=== PATIENT | female | born 1980 | race Caucasian/White ===

== ENCOUNTER 2019-05-04 09:09 | Outpatient (CLI) | payer BC ==
--- NOTE | 2019-05-04 09:35 | RAD ---
EXAM: Thoracic spine 3 views: HISTORY: Thoracic spine pain COMPARISON: None FINDINGS: Levoscoliosis of the lower thoracic vertebral column. Mild disc osteophytosis and spondylosis. No evidence for acute fracture or dislocation or significant acute process. No evidence for significant malalignment. Disc spaces are adequately preserved. No evidence for a focal bone lesion. IMPRESSION: Mild spondylosis. Levoscoliosis.
== END 2019-05-04 09:10 | disposition home or self-care (01) ==
LOC: TBSIIMAG 09:09
PROVIDERS: ATTEND Neurological Surgery
DX: M54.6 Pain in thoracic spine (principal); M47.814 Spondylosis without myelopathy or radiculopathy, thoracic region; M41.9 Scoliosis, unspecified
CPT/HCPCS: 72072

== ENCOUNTER 2019-07-26 11:28 | Outpatient (CLI) | payer BC, OTHER ==
[2019-07-26 14:49] LABS: #Eosinphils 0.1 thou/uL (0.0-0.7); #Lymphocytes 1.9 thou/uL (1.20-3.40); #Monocytes 0.4 thou/uL (0.11-0.59); #Neutrophils 3.7 thou/uL (1.40-6.50); %Basophils 0.6 % (0.0-1.0); %Eosinophils 1.5 % (0.0-10.0); %Lymphocytes 31.9 % (21.0-51.0); %Monocytes 5.9 % (0.0-10.0); %Neutrophils 60.1 % (42.0-75.0); Hemoglobin 14.9 g/dL (12.0-16.0); Mean Corpuscular HGB CONC 34.2 g/dL (32.0-36.0); Mean Corpuscular Hemoglobin 32.2 pg (27.0-31.0); Mean Corpuscular Volume 94.1 fL (78.0-98.0); Mean Platelet Volume 7.4 fL (7.4-10.4); Platelet Count 170 thou/uL (130-400); Red Blood Cell (RBC) Count 4.62 mill/uL (4.20-5.40); White Blood Cell (WBC) Count 6.1 thou/uL (4.8-10.8)
[2019-07-26 15:09] LABS: ALT (SGPT) 7 U/L (8-55); AST (SGOT) 10 U/L (5-34); Albumin 4.5 g/dL (3.5-5.0); Alkaline Phosphatase 42 U/L (40-110); Anion Gap 14 mmol/L (10-20); BUN (Urea Nitrogen) 11 mg/dL (7.0-18.7); Bilirubin, Total 0.8 mg/dL (0.2-1.2); Calc. Creatinine Clearance 0 mL/min (70-130); Calcium 9.1 mg/dL (7.8-10.44); Carbon Dioxide 23 mmol/L (22-29); Chloride 104 mmol/L (98-107); Estimated GFR-MDRD 81; Globulin 2.8 g/dL (2.4-3.5); Glucose 76 mg/dL (70-105); Potassium 3.9 mmol/L (3.5-5.1); Protein, Total 7.3 g/dL (6.0-8.3); Sodium 137 mmol/L (136-145)
[2019-07-27 11:51] LABS: SARS-CoV-2 MS2 Positive; SARS-CoV-2 N Gene Negative; SARS-CoV-2 S Gene Negative; SARS-CoV-2 orf1ab Negative
== END 2019-07-26 11:29 | disposition home or self-care (01) ==
LOC: LABBT 11:28
PROVIDERS: ATTEND Specialist
DX: Z01.812 Encounter for preprocedural laboratory examination (principal); Z11.59 Encounter for screening for other viral diseases; K80.12 Calculus of gallbladder with acute and chronic cholecystitis without obstruction
CPT/HCPCS: 80053; 85025; 87635; U0003

== ENCOUNTER 2020-06-09 15:00 | Inpatient (IN) | payer BC ==
[~2020-06-09 15:00] MED LIST: Iopamidol-370 76% 500 ML 1 ML ONE
[2020-06-09 15:31] LABS: #Eosinphils 0.1 thou/uL (0.0-0.7); #Lymphocytes 1.6 thou/uL (1.20-3.40); #Neutrophils 14.3 thou/uL (1.40-6.50); %Eosinophils 0.3 % (0.0-10.0); %Lymphocytes 9.4 % (21.0-51.0); %Monocytes 5.8 % (0.0-10.0); %Neutrophils 84.5 % (42.0-75.0); Hemoglobin 13.3 g/dL (12.0-16.0); Mean Corpuscular HGB CONC 33.6 g/dL (32.0-36.0); Mean Corpuscular Hemoglobin 31.6 pg (27.0-31.0); Mean Corpuscular Volume 94.1 fL (78.0-98.0); Mean Platelet Volume 7.1 fL (7.4-10.4); Platelet Count 344 thou/uL (130-400); Red Blood Cell (RBC) Count 4.21 mill/uL (4.20-5.40); White Blood Cell (WBC) Count 16.9 thou/uL (4.8-10.8)
[2020-06-09 15:39] LABS: BHCG - Serum Negative (NEGATIVE); Pregs Control Background? CLEAR/WHITE (CLR/WHITE); Pregs Control Bar Appear? YES (CONTROL BAR)
[2020-06-09] MEDS ORDERED: Ketorolac Tromethamine 30 MG/ML VIAL ONE (15:41)
[2020-06-09] MEDS ORDERED: Fentanyl 100 MCG/2 ML VIAL ONE ×2 (15:41→17:41)
[2020-06-09] MEDS ORDERED: Ondansetron PF 4 MG/2 ML Vial ONE (15:41)
[2020-06-09 15:53] LABS: ALT (SGPT) 34 U/L (8-55); AST (SGOT) 20 U/L (5-34); Albumin 3.9 g/dL (3.5-5.0); Alkaline Phosphatase 110 U/L (40-110); Anion Gap 17 mmol/L (10-20); BUN (Urea Nitrogen) 9 mg/dL (7.0-18.7); Bilirubin, Total 0.7 mg/dL (0.2-1.2); Calc. Creatinine Clearance 0 mL/min (70-130); Calcium 9.5 mg/dL (7.8-10.44); Carbon Dioxide 22 mmol/L (22-29); Chloride 102 mmol/L (98-107); Globulin 4.1 g/dL (2.4-3.5); Glucose 64 mg/dL (70-105); Potassium 3.8 mmol/L (3.5-5.1); Sodium 137 mmol/L (136-145)
[2020-06-09] MEDS ORDERED: Dextrose 50% Abboject 50 ML SYRINGE ONE (16:08)
[2020-06-09 16:14] LABS: Bacteria/HPF 2+ HPF (None Seen); Bilirubin Negative (Negative); Blood, Urine Trace (Negative); Clarity Clear (Clear); Glucose, Urine (Dipstick) Normal (Negative); Ketone, Urine Negative (Negative); Leukocyte Negative Leu/uL (Negative); Nitrite Negative (Negative); Protein, Urine (Dipstick) 50 mg/dL (Neg-Trace); RBC/HPF 0-3 HPF (0-3); Squamous Epithelial 0-3 HPF (0-3); WBC/HPF 0-3 HPF (0-3); pH, Urine 6.5 (5.0-9.0)
[2020-06-09] MEDS ORDERED: Piperacillin/Tazobactam 4.5 GM VIAL ONE (17:42)
[2020-06-09 17:52] LABS: INR-International Normal Ratio 1.2; PTT 33.1 sec (22.9-36.1); Prothrombin Time 15.6 sec (12.0-14.7)
[2020-06-09 18:29] LABS: Lactic Acid 1.1 mmol/L (0.5-2.2)
[2020-06-09] MEDS ORDERED: hydrALAZINE 20 MG/ML VIAL SLOW IVP PRN (19:34)
[2020-06-09] MEDS ORDERED: Ondansetron PF 4 MG/2 ML Vial IVP PRN (19:34)
[2020-06-09] MEDS ORDERED: Morphine 2 MG/ML VIAL SLOW IVP PRN (19:34)
[2020-06-09 19:57] VITALS: BMI 25.1
[2020-06-09] MEDS: Lactated Ringer's 1,000 ML IV SCH (20:34)
[2020-06-09] MEDS: Morphine 4 MG/ML VIAL SLOW IVP PRN (20:34)
[2020-06-09] MEDS: Famotidine/PF 20 mg/2ml Vial SLOW IVP SCH (20:35)
[2020-06-09 21:09] LABS: SARS-CoV-2 PCR by NAA Not Detected (NotDetected)
[2020-06-09] MEDS: Ketorolac Tromethamine 30 MG/ML VIAL IVP SCH (23:33)
[2020-06-10] MEDS: Piperacillin/Tazobactam 3.375 GM in Sodium Chloride 0.9% 100 ML IVPB SCH ×5 (00:21→23:29)
[2020-06-10] MEDS: Morphine 4 MG/ML VIAL SLOW IVP PRN ×4 (02:56→16:53)
[2020-06-10] MEDS: Lactated Ringer's 1,000 ML IV SCH ×3 (04:44→20:34)
[2020-06-10 05:27] LABS: #Eosinphils 0.1 thou/uL (0.0-0.7); #Lymphocytes 1.2 thou/uL (1.20-3.40); #Monocytes 0.6 thou/uL (0.11-0.59); #Neutrophils 7.5 thou/uL (1.40-6.50); %Basophils 0.3 % (0.0-1.0); %Eosinophils 1.2 % (0.0-10.0); %Monocytes 6.8 % (0.0-10.0); %Neutrophils 78.7 % (42.0-75.0); Hemoglobin 10.9 g/dL (12.0-16.0); Mean Corpuscular HGB CONC 34.5 g/dL (32.0-36.0); Mean Corpuscular Hemoglobin 32.2 pg (27.0-31.0); Mean Corpuscular Volume 93.4 fL (78.0-98.0); Mean Platelet Volume 6.3 fL (7.4-10.4); Platelet Count 254 thou/uL (130-400); RBC Distribution Width 10.9 % (11.5-14.5); Red Blood Cell (RBC) Count 3.39 mill/uL (4.20-5.40); White Blood Cell (WBC) Count 9.5 thou/uL (4.8-10.8)
[2020-06-10] MEDS: Ketorolac Tromethamine 30 MG/ML VIAL IVP SCH ×4 (05:34→23:31)
[2020-06-10] MEDS: Famotidine/PF 20 mg/2ml Vial SLOW IVP SCH ×2 (08:36→20:35)
[2020-06-10] MEDS ORDERED: Midazolam HCl 2 mg/2 ml Vial ONE (09:35)
[2020-06-10] MEDS ORDERED: Fentanyl 100 MCG/2 ML VIAL ONE (09:35)
[2020-06-10] MEDS ORDERED: Sodium Bicarbonate 2.5 MEQ/5 ML VIAL ONE (09:35)
[2020-06-10] MEDS ORDERED: HYDROcodone/Acetaminophen 5/325 mg Tablet PO PRN (17:11)
[2020-06-10] MEDS ORDERED: Morphine 4 MG/ML VIAL SLOW IVP PRN ×2 (17:13→17:15)
[2020-06-10] MEDS: HYDROcodone/Acetaminophen 5/325 mg Tablet PO PRN (17:30)
[2020-06-11] MEDS: Lactated Ringer's 1,000 ML IV SCH ×2 (03:09→13:46)
[2020-06-11] MEDS: HYDROcodone/Acetaminophen 5/325 mg Tablet PO PRN ×2 (03:20→08:31)
[2020-06-11] MEDS: Ketorolac Tromethamine 30 MG/ML VIAL IVP SCH ×2 (05:25→13:46)
[2020-06-11] MEDS: Piperacillin/Tazobactam 3.375 GM in Sodium Chloride 0.9% 100 ML IVPB SCH ×2 (05:26→13:46)
[2020-06-11] MEDS: Famotidine/PF 20 mg/2ml Vial SLOW IVP SCH (08:32)
[2020-06-11 13:51] VITALS: BP 98/58; TEMP 97.8
== END 2020-06-11 14:30 | disposition home or self-care (01) | DRG 373 ==
LOC: ERS 15:00 → SURG A 18:02
PROVIDERS: ADMIT Surgery; ATTEND Surgery
PROC: 0D9J3ZZ Drainage of Appendix, Percutaneous Approach (ICD-10-PCS; principal; 2020-06-11)
DX: K35.33 Acute appendicitis with perforation, localized peritonitis, and gangrene, with abscess (principal); Z88.8 Allergy status to other drugs, medicaments and biological substances; Z20.822 Contact with and (suspected) exposure to COVID-19
CPT/HCPCS: 36415; 49020; 74177; 77012; 80053; 81003; 81015; 83605; 84703; 85025; 85610; 85730; 87040; 87086; 87149; 87635; 93005; 96365; 96375; 96376; C1729; J1885; J2250; J2270; J2405; J2543; J3010; J3490; Q9967; S0028; U0003; U0005

== ENCOUNTER 2021-04-24 09:26 | Emergency (ER) | payer BC ==
[2021-04-24 09:56] LABS: #Lymphocytes 0.6 thou/uL (1.20-3.40); #Monocytes 0.3 thou/uL (0.11-0.59); #Neutrophils 5.5 thou/uL (1.40-6.50); %Eosinophils 0.3 % (0.0-10.0); %Lymphocytes 8.9 % (21.0-51.0); %Monocytes 5.1 % (0.0-10.0); %Neutrophils 85.7 % (42.0-75.0); Hemoglobin 14.5 g/dL (12.0-16.0); Mean Corpuscular HGB CONC 34.7 g/dL (32.0-36.0); Mean Corpuscular Hemoglobin 31.9 pg (27.0-31.0); Mean Corpuscular Volume 91.8 fL (78.0-98.0); Mean Platelet Volume 6.5 fL (7.4-10.4); Platelet Count 125 thou/uL (130-400); RBC Distribution Width 11.4 % (11.5-14.5); Red Blood Cell (RBC) Count 4.54 mill/uL (4.20-5.40); White Blood Cell (WBC) Count 6.4 thou/uL (4.8-10.8)
[2021-04-24 10:24] LABS: ALT (SGPT) 87 U/L (8-55); AST (SGOT) 44 U/L (5-34); Albumin 4.5 g/dL (3.5-5.0); Alkaline Phosphatase 59 U/L (40-110); Anion Gap 15 mmol/L (10-20); BUN (Urea Nitrogen) 13 mg/dL (7.0-18.7); Bilirubin, Total 1.9 mg/dL (0.2-1.2); Calc. Creatinine Clearance 0 mL/min (70-130); Calcium 9.6 mg/dL (7.8-10.44); Carbon Dioxide 21 mmol/L (22-29); Chloride 102 mmol/L (98-107); Globulin 3.1 g/dL (2.4-3.5); Glucose 93 mg/dL (70-105); Potassium 4.2 mmol/L (3.5-5.1); Protein, Total 7.6 g/dL (6.0-8.3); Sodium 134 mmol/L (136-145)
[2021-04-24] MEDS ORDERED: Morphine 4 MG/ML VIAL ONE (10:54)
[2021-04-24] MEDS ORDERED: Ondansetron PF 4 MG/2 ML Vial ONE (10:54)
[2021-04-24 11:09] LABS: Pregnancy Test - Urine (BHCG) Negative (Negative)
[2021-04-24 11:11] LABS: Bacteria/HPF 2+ HPF (None Seen); Bilirubin 1+ (Negative); Blood, Urine 1+ (Negative); Glucose, Urine (Dipstick) Normal (Negative); Ketone, Urine 80 mg/dL (Negative); Leukocyte 25 Leu/uL (Negative); Nitrite Negative (Negative); Pregu Control Background? CLEAR/WHITE (CLR/WHITE); Pregu Control Bar Appear? YES (CONTROL BAR); Protein, Urine (Dipstick) 200 mg/dL (Neg-Trace); Specific Gravity 1.039 (1.002-1.036); Specific Gravity, Urine 1.039 (1.002-1.036)
[2021-04-24 11:12] LABS: Clarity Cloudy (Clear)
== END 2021-04-24 13:13 | disposition home or self-care (01) ==
LOC: ERS 09:26
DX: N30.91 Cystitis, unspecified with hematuria (principal); Z86.16 Personal history of COVID-19
CPT/HCPCS: 36415; 76856; 80053; 81003; 81015; 81025; 83690; 85025; 87086; 96374; 96375; J2270; J2405